=== PATIENT | female | born 1955 | race Caucasian/White ===

== ENCOUNTER 2016-06-16 12:43 | Day surgery (SDC) | payer BC ==
[~2016-06-16] VITALS: Ht 157.5 cm; Wt 82.0 kg
[2016-06-16] VITALS (11 sets, daily range): BP systolic 130–162; BP diastolic 65–104; PULSE 72–93; RESP 11–21; Ht 157.5 cm; Wt 82.0 kg
[2016-06-16] MEDS ORDERED: LEVO100T87 PO (13:19)
[2016-06-16] MEDS ORDERED: BENA20TA48 PO (13:19)
[2016-06-16] MEDS ORDERED: PYRI50TA80 PO (13:20)
[2016-06-16] MEDS ORDERED: LETR2.5T PO (13:24)
[2016-06-16] MEDS ORDERED: CALC-277 PO (13:24)
--- NOTE | 2016-06-16 14:20 | HPN ---
Date/Time of Note Date/Time of Note DATE: 06/16/16 TIME: 14:20 Interval H&P Admission Note Pt. seen H&P reviewed: No system changes SHEELA NIX MD Jun 16, 2016 14:20
--- NOTE | 2016-06-16 14:22 | OPR ---
Date/Time of Note Date/Time of Note DATE: 06/16/16 TIME: 14:20 Operative Report Procedure Date: Jun 16, 2016 Preoperative Diagnosis carpal tunnel syndome Postoperative Diagnosis same Operation Performed ctr release Surgeon: SHEELA NIX MD Anesthesia: general, MAC Estimated Blood Loss: minimal Complications: None Pt Condition Post Procedure: stable SHEELA NIX MD Jun 16, 2016 14:22
[2016-06-16] MEDS ORDERED: PROPOFOL 20 ML ONE (15:17)
[2016-06-16] MEDS ORDERED: LIDOCAINE 2% (SDV) 5 ML INJ ONE (15:17)
[2016-06-16] MEDS ORDERED: MIDAZOLAM 1 MG/ML 2 ML INJ ONE (15:18)
[2016-06-16] MEDS ORDERED: CEFAZOLIN 1 GM INJ ONE (15:31)
[2016-06-16] MEDS ORDERED: FENTAnyl 50 MCG/ML VIAL ONE (15:36)
[2016-06-16] MEDS ORDERED: LIDOCAINE 1% (MPF) 30 ML INJ ONE (15:42)
[2016-06-16] MEDS ORDERED: ONDANSETRON 4 MG INJ ONE (15:47)
[2016-06-16] MEDS ORDERED: DEXAMETHASONE 4 MG/ML 1 ML INJ ONE (15:47)
[2016-06-16] MEDS ORDERED: METOCLOPRAMIDE 10 MG INJ ONE (15:47)
[2016-06-16] MEDS ORDERED: FAMOTIDINE 20 MG INJ ONE (15:48)
[2016-06-16] MEDS ORDERED: hydrALAzine 20 MG INJ IV PRN (16:00)
[2016-06-16] MEDS ORDERED: DIPHENHYDRAMINE 50 MG INJ IV PRN (16:00)
[2016-06-16] MEDS ORDERED: HYDROmorphONE (0.2 MG/ML) 10ML SYG IV PRN (16:00)
[2016-06-16] MEDS ORDERED: MEPERIDINE 25 MG INJ IV PRN (16:00)
[2016-06-16] MEDS ORDERED: FENTAnyl 50 MCG/ML VIAL IV PRN (16:00)
[2016-06-16] MEDS ORDERED: LABETALOL HCL 20MG INJ IV PRN (16:00)
[2016-06-16] MEDS ORDERED: ONDANSETRON 4 MG INJ IV PRN (16:00)
[2016-06-16] MEDS ORDERED: OXYCODONE/ACETAMINOPHEN (5/325) TAB PO PRN (16:00)
[2016-06-16] MEDS ORDERED: PROCHLORPERAZINE 10 MG INJ IV PRN (16:00)
--- NOTE | 2016-06-16 16:19 | OPR ---
DATE OF OPERATION: 06/16/2016 PREOPERATIVE DIAGNOSIS: Left hand carpal tunnel syndrome. POSTOPERATIVE DIAGNOSIS: Left hand carpal tunnel syndrome. PROCEDURE PERFORMED: Left hand carpal tunnel release. SURGEON: Sheela Escamilla MD FINANCIAL HEALTH COUNSELOR: Staff. CONTROLLED ATMOSPHERIC FURNACE BRAZER: Maite Finney MD ANESTHESIA TECHNIQUE: General anesthetic by anesthesiologist, local anesthetic by the surgeon. SURGICAL PAUSE: I examined the patient in the preop holding area, interviewed the patient awake. Confirmed the operative procedure and plan. I parul in the surgical incision with a marking pen. Showed the drawn surgical incision to the patient. Confirmed the operative procedure and plan once again. INFORMED CONSENT: At the time we scheduled the procedure in the office, we talked to the patient about the risks and hazards of surgery. We talked about operative mortality, wound infection, good results, bad results, and potential complications. The patient signed the note confirming the conversation. DESCRIPTION OF PROCEDURE: The patient was taken to surgery today, anesthetized as above, sterile prep and drape performed. Pneumatic tourniquet inflated on the forearm to 250 mmHg. A 2 cm longitudinal incision made in the mid palm overlying the transverse carpal ligament in the axis of the radial border of the ring finger. Dissection carried down to the transverse carpal ligament. A tiny ruthie was made and then a mosquito passed through that ruthie. We used the mosquito to elevate the ligament away from the deep structures and divide it under direct observation proximally and distally. We could see the median nerve and it was entirely untouched. I closed the wound with interrupted Vicryl Rapide suture and put a bulky cotton Winter type dressing on. The operative procedure was about 1/4 hour. The patient is awake in recovery. DISCHARGE MEDICATIONS: 1. Hydrocodone. 2. Acetaminophen. 3. Keflex. FOLLOWUP: Follow up will be our office in a week. Dictated By: SHEELA VILLARREAL/DANIELE Conf#: [id number] DID#: [id number]
== END 2016-06-16 17:40 | disposition home or self-care (01) ==
LOC: SDS 12:43
PROVIDERS: ATTEND Orthopaedic Surgery Hand Surgery
DX: G56.02 Carpal tunnel syndrome, left upper limb (principal); E03.9 Hypothyroidism, unspecified; I10 Essential (primary) hypertension
CPT/HCPCS: 64721; J0690; J2250; J3010; Z7512; Z7610; J1100; J2405; J2765